=== PATIENT | male | born 1970 | race Caucasian/White ===

== ENCOUNTER 2021-07-02 22:22 | Inpatient (IN) | payer OTHER ==
[~2021-07-02] VITALS: Ht 180.3 cm; Wt 112.3 kg
[2021-07-03 00:05] VITALS: BP 107/72
[2021-07-03] MEDS ORDERED: ZESTORETIC 10-1 EACH PO (01:05)
[2021-07-03 03:44] LABS: HEMATOCRIT 40.4 % (42.0-52.0); HEMOGLOBIN 13.6 gm/dL (14.0-18.0); MCH 28.1 pg (26.0-34.0); MCHC 33.6 g/dL (28.0-37.0); MCV 83.4 fL (80.0-100.0); RBC 4.85 mil/uL (4.50-6.00); RDW 14.9 % (10.5-14.5); WBC 24.8 thou/uL (4.0-11.0)
[2021-07-03 03:57] LABS: APTT 31.5 Seconds (24.5-32.8); INR 1.14; PROTIME 12.3 Seconds (10.5-12.1)
[2021-07-03 04:02] LABS: ALBUMIN 2.2 g/dL (3.4-5.0); CALCIUM 8.6 mg/dL (8.5-10.1); CHOLESTEROL 135 mg/dL (<200); CREATININE 1.2 mg/dL (0.7-1.3); HDL CHOLESTEROL 23 mg/dL (>40); LDL CHOLESTEROL 89 mg/dL (<100); MAGNESIUM 2.1 mg/dL (1.8-2.4); TC:HDL 5.9 Ratio (Not establshd); TOTAL BILIRUBIN 0.6 mg/dL (0.2-1.0); TOTAL PROTEIN 7.4 g/dL (6.4-8.2); TRIGLYCERIDE 118 mg/dL (<150); VLDL 24 mg/dL (<40)
[2021-07-03 04:05] LABS: POTASSIUM 2.8 mmol/L (3.5-5.1)
[2021-07-03 04:13] LABS: SERUM ASSESSMENT Clear
[2021-07-03 04:45] VITALS: BP 113/75
--- NOTE | 2021-07-03 04:56 | NUR ---
ADMITTED THIS PATIENT FROM [facility] AROUND 2345H.INFORMED PROPOSAL WRITER ON DUTY OF THE PATIENT.ADMISSION HISTORY AND ASSESSMENT DONE. HAS BEEN CALLED AND INFORMED THAT PATIENT HAS BEEN TRANSFERED HERE.CARRIED OUT ALL ORDERS.RELAYED CRITICAL RESULTS WITH PROPOSAL WRITER,ORDER TAKEN.ALL NEEDS ATTENDED.TO CONTINOUSLY MONITOR.
[2021-07-03 08:00] VITALS: BP 106/67
--- NOTE | 2021-07-03 10:35 | 2DMMODE ---
[place] [address] 2 D/M-MODE ECHOCARDIOGRAM Name: MONICA FONG Room #: 214-P ADM IN M.R.#: [id number] Admission: 07/02/21 Attend Phys: Dustin Bass MD Discharge: Date of : 68 Report #: [id number] THIS REPORT FOR: cc: Zoltan Michaels Damon DO Mancuso, Gerald M. MD [facility] ~ APPROVED REPORT Study performed: 07/03/2021 09:06:11 EXAM: Comprehensive 2D, Doppler, and color-flow Echocardiogram Patient Location: Bedside Room #: 214 Status: routine BSA: 2.31 HR: 104 bpm BP: 113/75 mmHg Rhythm: Tachycardia Other Information Study Quality: Adequate Indications Sepsis Elevated Troponin Hypertension/HDD 2D Dimensions RVDd: 39.08 mm IVSd: 11.05 (7-11mm) LVOT Diam: 23.40 (18-24mm) LVDd: 54.57 mm PWd: 10.62 (7-11mm) Ascending Ao: 33.81 (22-36mm) LVDs: 46.67 (25-40mm) Left Atrium: 44.09 (27-40mm) Aortic Root: 33.80 mm IVC: 16.00 mm Volumes Left Atrial Volume (Systole) Single Plane 4CH: 65.38 mL Single Plane 2CH: 51.08 mL LA ESV Index: 26.00 mL/m2 Aortic Valve AoV Peak Jose Raul.: 0.92 m/s AO Peak Gr.: 3.40 mmHg LVOT Max P.[address] [address] 2 D/M-MODE ECHOCARDIOGRAM Name: FONGMONICA Room #: 214-P [facility] IN [facility]#: [id number] Admission: 07/02/21 Attend Phys: Dustin Bass MD Discharge: Date of : 68 Report #: [id number] LVOT Max V: 0.79 m/s BRUCE Vmax: 3.68 cm2 Pulmonary Valve PV Peak Jose Raul.: 0.86 m/s PV Peak Gr.: 2.94 mmHg Tricuspid Valve TR Peak Jose Raul.: 2.55 m/s TR Peak Gr.: 25.98 mmHg PA Pressure: 36.00 mmHg Left Ventricle The left ventricle is normal size. There is hypokinesis in the inferior wall. There is hypokinesis in the posterior wall. There is normal left ventricular wall thickness. Left ventricular systolic function is mildly decreased. LVEF is 45-50% Grade I - abnormal relaxation pattern. Right Ventricle The right ventricle is normal size. The right ventricular systolic function is normal. Atria The left atrium size is normal. The right atrium size is normal. Aortic Valve The aortic valve is normal in structure. No aortic regurgitation is present. There is no aortic valvular stenosis. Mitral Valve The mitral valve is normal in structure. Moderate to severe mitral regurgitation No evidence of mitral valve stenosis. Tricuspid Valve The tricuspid valve is normal in structure. There is mild tricuspid regurgitation. Estimated PAP 36 mmHg. There is mild pulmonary hypertension. Pulmonic Valve The pulmonary valve is normal in structure. There is no pulmonic valvular regurgitation. Great Vessels The aortic root is normal in size. IVC is dilated and collapses <50% [place] [address] 2 D/M-MODE ECHOCARDIOGRAM Name: FONGMONICA Room #: 214-P [facility] IN M.R.#: [id number] Admission: 07/02/21 Attend Phys: Dustin Bass MD Discharge: Date of : 68 Report #: [id number] Pericardium There is no pericardial effusion. <Conclusion> The left ventricle is normal size. Left ventricular systolic function is mildly decreased. There is hypokinesis in the inferior wall. There is hypokinesis in the posterior wall. LVEF is 45-50% Grade I - abnormal relaxation pattern. The right ventricle is normal size. The left atrium size is normal. The aortic valve is normal in structure. The mitral valve is normal in structure. Moderate to severe mitral regurgitation There is mild tricuspid regurgitation. Estimated PAP 36 mmHg. There is mild pulmonary hypertension. The aortic root is normal in size. There is no pericardial effusion. <ELECTRONICALLY SIGNED> By: Julian Traore MD, FACC 07/03/21 1035 1035 1035 Julian Traore MD, FAC /INF
[2021-07-03 11:30] VITALS: BP 107/70
[2021-07-03 13:15] LABS: URINE BILIRUBIN NEGATIVE (Negative); URINE BLOOD 3+ (Negative); URINE CLARITY SL CLOUDY; URINE COLOR YELLOW; URINE GLUCOSE-RANDOM* NEGATIVE (Negative); URINE KETONES NEGATIVE (Negative); URINE LEUKOCYTES-REFLEX NEGATIVE (Negative); URINE NITRITE-REFLEX NEGATIVE (Negative); URINE PROTEIN (DIPSTICK) 2+ (Negative); URINE UROBILINOGEN 0.2 E.U./dl (0.2-1.0)
[2021-07-03 13:33] LABS: BACTERIA-REFLEX 1-9 Few /HPF (None Seen); CASTS None Seen /LPF (None Seen); CRYSTALS None Seen /LPF (None Seen); SQUAMOUS 0-3 Few /LPF (0-3); URINE RBC >20 Many /HPF (NONE SEEN); URINE WBC-REFLEX 0-5 Rare /HPF (0-5)
--- NOTE | 2021-07-03 16:44 | NUR ---
PATIENT ADMITTED FOR SEPSIS, CAP, ELEVATED TROPONIN, PE. CHART REVIEWED AND DISCUSSED WITH CARE TEAM. CM MET WITH PT THIS DAY. CM ROLE INTRODUCED. PT UP IN ROOM WALKING FROM BATHROOM TO BED WITH IV POLE ADLIB. PT REPORTS HE LIVES AT HOME WITH HIS . PT REPORTS HE IS INDEPENDENT WITH ALL ADLS AND MOBLITY AND NO ASSISTANCE WITH A ASST DEVICE. HE VOICED NO CONCERNS TO DC HOME ONCE MEDICALLY STABLE TO DC. NO CM INTERVENTIONS AT THIS TIME. WILL CONTINUE TO FOLLOE.
--- NOTE | 2021-07-03 18:42 | NUR ---
ASSESSMENT CHARTED - MEDS PER SEP - HEPARIN D/C STARTED ON LOVENOX. UP TO THE BATHROOM - DIARRHEA . URINE TO THE LAB. NO CO'S OF PAIN OR NAUSEA. PT HAD ECHO THIS SHIFT AND TO HAVE CATH IN THE AM. SELINA SMALL AMOUNT OF DIET AND FLUIDS. NO CO'S AT THE PRESENT TIME.
[2021-07-03 19:20] VITALS: BP 106/66
[2021-07-04 03:41] VITALS: BP 90/67
--- NOTE | 2021-07-04 04:23 | NUR ---
RECEIEVED PATIENT AT 1900H.ASSESSMENT DONE CHARTED.MEDS GIVEN PER SEP.HAD COMPLAINT OF HEADACHE, PRN TYLENOL GIVEN.KEPT NPO FROM MIDNIGHT.ALL NEEDS ATTENDED.TO CONTINOUSLY MONITOR.
[2021-07-04 05:16] LABS: HEMATOCRIT 38.6 % (42.0-52.0); HEMOGLOBIN 12.8 gm/dL (14.0-18.0); MCHC 33.1 g/dL (28.0-37.0); MCV 84.7 fL (80.0-100.0); RBC 4.56 mil/uL (4.50-6.00); RDW 15.3 % (10.5-14.5); WBC 24.8 thou/uL (4.0-11.0)
[2021-07-04 05:47] LABS: CALCIUM 8.3 mg/dL (8.5-10.1); CREATININE 1.4 mg/dL (0.7-1.3); POTASSIUM 3.2 mmol/L (3.5-5.1)
[2021-07-04 06:15] VITALS: BP 106/70
[2021-07-04 09:04] VITALS: BP 98/67
--- NOTE | 2021-07-04 13:19 | HC ---
[facility] [place] [address] CONSULTATION Name: JUN FONGLópez Zurita Room #: 214-P ADM IN M.R.#: [id number] Admission: 07/02/21 Attend Phys: Hugo Bocanegra MD Discharge: Date of : 68 Report #: [id number] THIS REPORT FOR: cc: Zoltan Michaels Damon DO Barry, Joseph W. MD ~ DATE OF SERVICE: 07/03/2021 INFECTIOUS DISEASE CONSULTATION ATTENDING PHYSICIAN: Dr. Bass. REASON FOR EVALUATION: Sepsis. HISTORY OF PRESENT ILLNESS: Chart reviewed. The patient examined. This is a 51-year-old with history of hypertension, admitted in transfer from outside hospital, found to possibly have sepsis and pneumonitis, although elevated troponin consistent with an acute cardiac ischemic event. He noted onset of illness started roughly a week ago. He was evaluated for left facial primarily the cheek inflammatory process. He was ____ diagnosed with cellulitis. He was treated with clindamycin. He seemed to have responded initially. He noted he had some systemic illness as well that progressed including myalgias, poor p.o. intake and subsequently developed some dyspnea with chest discomfort. To that, he presented to the outside hospital, was evaluated. A CT showed 2 small pulmonary emboli on the left side. Chest x-ray, question of some mild infiltrates. He was noted to have a marked leukocytosis with a white count of 26,000 and a positive troponin test. The D-dimer of 917. He was then started on empiric therapy with Zosyn and doxycycline. He notes he still is quite uncomfortable, tachypneic. Follow up white count was 24.8. Lactic acid 1.1. Procalcitonin of 2.54. He did undergo echo, which showed depressed left ventricular function in a 45-50 range with hypokinesis involving the inferior and posterior wall. Also noted some [id number] mitral regurgitation. He has not been febrile since his admission and he is only mildly labile with his hemodynamics. He is generally lucid. ALLERGIES: None known. CURRENT MEDICATIONS: Currently include heparin, Zosyn, aspirin, doxycycline, ipratropium, albuterol inhaler, ondansetron, acetaminophen. PAST MEDICAL HISTORY: As described above, hypertension, pulmonary embolus, non-STEMI. SOCIAL HISTORY: Nonsmoker. Rare ethanol. No illicit drug use. FAMILY HISTORY: Noncontributory. [address] [address] CONSULTATION Name: MONICA FONG Yudith Room #: 214-P [facility] IN [facility]#: [id number] Admission: 07/02/21 Attend Phys: Hugo Bocanegra MD Discharge: Date of : 68 Report #: [id number] REVIEW OF SYSTEMS: Otherwise noted above. PHYSICAL EXAMINATION: GENERAL: He is in moderate to marked distress. He is generally lucid. He is quite tachypneic. VITAL SIGNS: Temperature 98.2, pulse 102, respirations 20, blood pressure 106/67. SKIN: Warm, dry, no rashes. HEENT: Normocephalic. Extraocular muscles intact. Left cheek only mild residual surface inflammatory signs. I do not appreciate any adenopathy. NECK: Supple. LUNGS: Increased respiratory rate. Few scattered coarse breath sounds. HEART: Borderline tachycardic, regular. I do not appreciate a murmur. ABDOMEN: Mildly distended, somewhat firm, nontender. EXTREMITIES: No cyanosis. GENITOURINARY AND RECTAL: Deferred. LABORATORY DATA: Echo as described above. Procalcitonin is 2.54. TSH is 0.603. Electrolytes: Sodium 135, potassium 2.8, chloride 100, bicarbonate is 20, anion gap of 15, BUN and creatinine 24 and 1.2, glucose of 116. AST of 24, ALT of 32, albumin of 2.2. Total protein 7.7, estimated GFR 64. CBC: White count of 24.8, H and H 13.6 and 40.4, platelets of 229. ASSESSMENT: 1. Sepsis with mild to moderate hemodynamic instability without evidence of multiple organ dysfunction. 2. Pneumonitis with evidence of pulmonary emboli. 3. Hypertension. PLAN: We will continue empiric therapy. It is not entirely clear as to the source of the possible sepsis. It certainly appears to have previous episode of cellulitis. We will await blood culture results. ____ risk factors for any particular environmental exposure. He does remain tenuous. We will continue to monitor expectantly. <ELECTRONICALLY SIGNED> By: Dajuan Padilla MD 07/04/21 1319 1006 12 Dajuan Padilla MD /nt
[2021-07-04 16:06] LABS: HIV ANTIBODY Non Reactive (Non Reactive)
--- NOTE | 2021-07-04 18:21 | NUR ---
ASSESSMENT CHARTED - OFF UNIT FOR NOON ASSESSMENT IN CONTROL OPERATOR FLOW COAT. MEDS PER MAR - SELINA DIET AND FLUIDS. NO CO'S OF PAIN OR NAUSEA. UP IN ROOM - GROIN STABLE POST CATH AFTER BEING OUT OF BED. VSS. IV FLUIDS CONTINUE. CATH WITH NO INTERVENTION. NO CO'S AT THE PRESENT TIME. AT THE BEDSIDE - CONTINUES TO HAVE DIARRHEA. K+ ORDERED PER PROTOCOL.
[2021-07-04 19:49] VITALS: BP 90/58
[2021-07-04 20:06] LABS: SYPHILIS AB Non Reactive (Non Reactive)
[2021-07-04 22:00] VITALS: BP 111/64
[2021-07-05 00:09] VITALS: BP 83/54
[2021-07-05 04:00] VITALS: BP 103/71
--- NOTE | 2021-07-05 04:53 | NUR ---
RECIEVED PATIENT AT 1900H.PATIENT IS ALERT AND ORIENTED X4.ON ROOM AIR BREATHING SPONTANEOUSLY.WITH RIGHT GROIN COVERED WITH DRESSING C/D/I.ALL NEEDS ATTENDED.TO CONTINOUSLY MONITOR.
[2021-07-05 05:11] LABS: HEMOGLOBIN 12.9 gm/dL (14.0-18.0); MCH 28.2 pg (26.0-34.0); MCHC 33.1 g/dL (28.0-37.0); MCV 85.3 fL (80.0-100.0); RBC 4.58 mil/uL (4.50-6.00); RDW 15.6 % (10.5-14.5); WBC 21.9 thou/uL (4.0-11.0)
[2021-07-05 05:23] LABS: CALCIUM 8.3 mg/dL (8.5-10.1); CREATININE 1.4 mg/dL (0.7-1.3); POTASSIUM 3.4 mmol/L (3.5-5.1)
[2021-07-05 05:47] LABS: PLATELET COUNT 359 thou/uL (150-400)
[2021-07-05 08:31] LABS: ABSOLUTE NEUTROPHILS 19.5 thou/uL (1.4-8.2)
[2021-07-05 08:32] LABS: ANISOCYTOSIS 1+
[2021-07-05 08:52] VITALS: BP 96/64
--- NOTE | 2021-07-05 10:39 | NUR ---
FULL CODE. AD ZEYAD. A/O X 4. ROOM AIR. RIGHT GROIN DRESSING D/C/I. SR ON TELE. RIGHT FOREARM AND LEFT FOREARM PIV. NS INFUSING @ 126/MLS HR. IV ABT DOXY AND ZOSYN TOLERATING WELL. NO CHEST PAIN NOTED. POTASSIUM 3.4 TODAY WILL REDRAW IN 4 HOURS. HAD A MED LOOSE BM. AT BEDSIDE. WANTS TO TAKE A SHOWER LATER TODAY. NO SOB NOTED WITH AMBULATION IN ROOM. RIGHT GROIN DRESSING D/C/I.
[2021-07-05 12:20] VITALS: BP 98/59
--- NOTE | 2021-07-05 12:40 | NUR ---
PT WILL MOSTLY LIKELY DC TOMORROW ON PO ABTS. NO CM INTERVENTIONS NEEDED AT THIS TIME.
--- NOTE | 2021-07-05 15:37 | CATHLAB ---
[facility] [place] [address] INVASIVE PROCEDURE REPORT Name: JUN FONGLópez Zurita Room #: 214-P ADM IN M.R.#: [id number] Admission: 07/02/21 Attend Phys: Hugo Bocanegra MD Discharge: Date of : 68 Report #: [id number] THIS REPORT FOR: cc: Zoltan Michaels Damon DO Mancuso, Gerald M. MD [facility] ~ APPROVED REPORT Study performed: 07/04/2021 11:52:36 Patient Details Patient Status: In-Patient Room #: 214 The patient is a 51 year-old male Event Personnel Julian Traore Environmental Inspector, Oma Kelly RN RN, Binta Blackwell RTR ScrRupinder mata Ja'net RTR Monitor Procedures Performed Art Access - R femoral artery* Right and Left Heart Cath w/or w/o Coronarie [id number] [facility] Hemostasis w/ Mynx Abdominal Aortography [id number] Indication Chest pain Procedure Narrative The patient was brought urgently to the Cardiac Catheterization Laboratory and was prepped and draped in a sterile manner. The Right Groin^ was infiltrated with 1% Lidocaine subcutaneous anesthesia. A Right Heart Catheterization was performed with a 7 Fr. [place]-Oscar catheter and pressure were recorded. Cardiac outputs were obtained by the Thermal Dilution method. A PINNACLE 6FR Sheath #[id number] sheath was inserted into the RFA^. Coronary angiography was performed using coronary diagnostic catheters. The right coronary system was accessed and visualized with a JR4 catheter. The left coronary system was accessed and visualized with a JL4 catheter. The left ventricle was accessed and visualized with a PIGTAIL catheter. An aortogram of the abdominal aorta was performed. Closure device was deployed with a Fr MYNXGRIP 6/7F #[id number]. The patient tolerated the procedure well and there were no complications associated with the procedure. There was no hematoma. Intraoperative Conscious Sedation [facility] [email or web address] [address] INVASIVE PROCEDURE REPORT Name: MONICA FONG Room #: 214-P [facility] IN [facility]#: [id number] Admission: 07/02/21 Attend Phys: Hugo Bocanegra MD Discharge: Date of : 68 Report #: [id number] Sedation start time: 12:52 Case end Time: 13:28 Fluoro Time: 6.20 minutes Dose: DAP 7348.34 cGycm2 610 mGy Contrast Type and Amount: Visipaque 140 ml Hemodynamics The right atrial mean pressure is 11 mmHg. The right ventricular pressure is 35/2 mmHg. The pulmonary artery pressure is 35/21 mmHg with a mean of 25 mmHg. The mean pulmonary capillary wedge pressure is 17 mmHg. The aortic pressure is 97/66 mmHg with a mean of 80 mmHg. The left ventricular pressure is 92/10 mmHg with a mean of mmHg. The left ventricular end diastolic pressure is 22 mmHg. The cardiac output using thermo method is 5.65 L/min. The cardiac index using thermo method is 2.44 L/min/m2. Conclusion #1 Successful right heart catheterization with cardiac output by thermodilution. See above hemodynamics. #2 normal left jugular size LV function lower limits of normal EF 50% range. No definite wall motion abnormality. #3 abdominal aortogram mild aortic ectasia but no evidence of aneurysm formation. #4 left main is large and widely patent giving rise to LAD and circumflex. #5 LAD extends around to the apex. There is mild distal disease no occlusive disease is noted. #6 circumflex OM is nondominant with mild irregularity #7 large dominant right coronary artery is minimal plaquing giving rise to a widely patent PDA CCEILLE. Recommendations and plan: Continue aggressive risk factor modification. No indication for coronary intervention. <ELECTRONICALLY SIGNED> By: Julian Traore MD, FACC 07/05/21 1537 153 153 Julian Traore MD, FACC /INF
[2021-07-05 16:37] VITALS: BP 105/62
[2021-07-05 20:32] VITALS: BP 105/69
--- NOTE | 2021-07-06 03:39 | NUR ---
CALLED SYBIL FOR HELP WITH HEART RATE. JUMPING TO 140 TO 150 FREQUENTLY. LOPRESSOR WAS ORDERED AND GIVEN.
[2021-07-06 03:51] VITALS: BP 102/58
--- NOTE | 2021-07-06 05:20 | NUR ---
PATIENT CARES WHERE ASSUMED AT SHIFT CHANGE.PATIENT WAS ASSESSED AND MEDS WHERE PASSED. PATIENT WAS GIVEN MEDS IVP FOR HIS HEART RATE. TWO HOURS LATER IT STARTED TO CLIMB AGAIN, WITH THE EPISODS OF INTERMITTENT HIGH RATES PATIENT MAY NEED A CARDO GTT. WILL PASS THOUGHTS TO [facility]. ROUNDS WHERE MADE. THE BED IS IN A LOW AND LOCKED POSITION
[2021-07-06 07:59] LABS: ABSOLUTE NEUTROPHILS 15.1 thou/uL (1.4-8.2); BASOPHILS 0.4 % (0.0-2.0); EOSINOPHILS 2.7 % (0.0-3.0); HEMATOCRIT 34.9 % (42.0-52.0); HEMOGLOBIN 11.4 gm/dL (14.0-18.0); LYMPHOCYTES 5.2 % (24.0-44.0); MCH 27.5 pg (26.0-34.0); MCHC 32.6 g/dL (28.0-37.0); MCV 84.4 fL (80.0-100.0); MONOCYTES 5.9 % (1.0-8.0); PLATELET COUNT 364 thou/uL (150-400); POLYS 85.8 % (36.0-66.0); RBC 4.13 mil/uL (4.50-6.00); RDW 15.1 % (10.5-14.5); WBC 17.6 thou/uL (4.0-11.0)
[2021-07-06 08:00] VITALS: BP 98/64
[2021-07-06 08:30] LABS: ALBUMIN 1.5 g/dL (3.4-5.0); CALCIUM 8.1 mg/dL (8.5-10.1); CREATININE 1.2 mg/dL (0.7-1.3); POTASSIUM 3.2 mmol/L (3.5-5.1); TOTAL BILIRUBIN 0.3 mg/dL (0.2-1.0); TOTAL PROTEIN 5.8 g/dL (6.4-8.2)
[2021-07-06 11:00] VITALS: BP 93/66
[2021-07-06 16:00] VITALS: BP 99/66
[2021-07-06 20:15] VITALS: BP 103/68
[2021-07-07 04:28] LABS: HEMATOCRIT 36.7 % (42.0-52.0); HEMOGLOBIN 12.2 gm/dL (14.0-18.0); MCH 28.4 pg (26.0-34.0); MCHC 33.2 g/dL (28.0-37.0); MCV 85.4 fL (80.0-100.0); RBC 4.3 mil/uL (4.50-6.00); RDW 15.5 % (10.5-14.5); WBC 15.3 thou/uL (4.0-11.0)
[2021-07-07 04:45] VITALS: BP 106/56
[2021-07-07 07:45] VITALS: BP 118/78
[2021-07-07] MEDS ORDERED: AMIODARONE HCL400 MG PO (10:11)
[2021-07-07] MEDS ORDERED: AMOX TR-K CLV1 EAC4 PO (11:23)
[2021-07-07] MEDS ORDERED: ELIQUIS5 MG PO (11:23)
[2021-07-07] MEDS ORDERED: FLORANEX GRANU1 EACH PO (11:24)
[2021-07-07 12:14] VITALS: BP 118/78
[2021-07-07 13:30] VITALS: BP 118/78
--- NOTE | 2021-07-07 13:51 | NUR ---
PATIENT DISCHARGED HOME WITH THIS AFTERNOON. PATIENT GIVEN DISCHARGE INSTRUCTIONS AND EDUCATIONAL DOCUMENTS ON MEDICAL CONDITIONS AND NEW MEDICATIONS.
--- NOTE | 2021-07-09 07:14 | EKG ---
[address] [address] ELECTROCARDIOGRAM REPORT Name: MONICA FONG Room #: 214-[facility]#: [id number] Admission: 07/02/21 Attend Phys: Hugo Bocanegra MD Discharge: 07/07/21 Date of : 68 Report #: [id number] [facility] Test Date: 2021-07-06 Test Time: 09:47:31 Pat Name: MONICA FONG Department: Room: 214 Gender: M Tile Layer Drainage: SHANE : 1970 Requested By: Julian Traore Order Number: [id number] MD: Nelson Kerr Measurements Intervals [place]ley Rate: 104 P: MT: QRS: -21 QRSD: 197 T: QT: 431 QTc: 567 Interpretive Statements Atrial fibrillation Right bundle branch block No previous ECG available for comparison Electronically Signed On 07-09-2021 7:13:56 AIR DIRECTOR by Nelson Kerr [email or web address] <ELECTRONICALLY SIGNED> By: Nelson Kerr MD, [facility] 07/09/21 0713 0947 0947 Nelson Kerr MD, FACC /EPI
== END 2021-07-07 13:50 | disposition home or self-care (01) | DRG 871 ==
LOC: 2N 22:22
PROVIDERS: Hospitalist; Nurse Practitioner Family; Specialist; ADMIT Hospitalist; ATTEND Hospitalist
PROC: 4A023N8 Measurement of Cardiac Sampling and Pressure, Bilateral, Percutaneous Approach (ICD-10-PCS; principal; 2021-07-04)
PROC: B211YZZ Fluoroscopy of Multiple Coronary Arteries using Other Contrast (ICD-10-PCS; principal; 2021-07-04)
PROC: B410YZZ Fluoroscopy of Abdominal Aorta using Other Contrast (ICD-10-PCS; principal; 2021-07-04)
DX: A41.9 Sepsis, unspecified organism (principal); J18.9 Pneumonia, unspecified organism; I21.4 Non-ST elevation (NSTEMI) myocardial infarction; I26.99 Other pulmonary embolism without acute cor pulmonale; N17.9 Acute kidney failure, unspecified; L03.211 Cellulitis of face; I42.9 Cardiomyopathy, unspecified; E87.1 Hypo-osmolality and hyponatremia; E87.2 Acidosis; I10 Essential (primary) hypertension; I34.0 Nonrheumatic mitral (valve) insufficiency; E87.6 Hypokalemia; N28.89 Other specified disorders of kidney and ureter; N20.0 Calculus of kidney; I48.91 Unspecified atrial fibrillation; G47.33 Obstructive sleep apnea (adult) (pediatric); Z86.711 Personal history of pulmonary embolism; I25.2 Old myocardial infarction; Z82.49 Family history of ischemic heart disease and other diseases of the circulatory system; Z82.3 Family history of stroke; Z81.8 Family history of other mental and behavioral disorders; Z79.82 Long term (current) use of aspirin; Z79.899 Other long term (current) drug therapy; Z28.21 Immunization not carried out because of patient refusal
CPT/HCPCS: 10081